=== PATIENT | female | born 1970 | race African-American/Black ===

== ENCOUNTER 2017-02-01 07:49 | Emergency (ER) | payer SELFPAY ==
[2017-02-01 07:54] VITALS: BP 133/89
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
== END 2017-02-01 08:25 | disposition home or self-care (01) ==
LOC: ER 07:49
DX: T20.10XA Burn of first degree of head, face, and neck, unspecified site, initial encounter (principal); X10.2XXA Contact with fats and cooking oils, initial encounter; F17.210 Nicotine dependence, cigarettes, uncomplicated
CPT/HCPCS: 99283

== ENCOUNTER 2018-04-07 10:19 | Emergency (ER) | payer SELFPAY ==
[2018-04-07 10:28] VITALS: BP 123/75
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
--- NOTE | 2018-04-07 11:17 | RADIOLOGY REPORT (SQ) ---
EXAM DESCRIPTION: FOOT RIGHT COMPLETE COMPLETED DATE/TIME: 04/07/2018 10:56 am REASON FOR STUDY: injury03/20/18 continued pain and swelling COMPARISON: None. NUMBER OF VIEWS: Three views. TECHNIQUE: AP, lateral and oblique radiographic images acquired of the right foot. LIMITATIONS: None. FINDINGS: MINERALIZATION: Normal. BONES: No acute fracture or dislocation. No worrisome bone lesions. JOINTS: No effusions. SOFT TISSUES: No soft tissue swelling. No foreign body. OTHER: No other significant finding. IMPRESSION: NEGATIVE STUDY OF THE RIGHT FOOT. NO RADIOGRAPHIC EVIDENCE OF ACUTE INJURY. TECHNICAL DOCUMENTATION: JOB ID: [id number] [employer]- All Rights Reserved Reading location - IP/workstation name: [email or web address]
== END 2018-04-07 11:33 | disposition home or self-care (01) ==
LOC: ER 10:19
DX: S90.31XA Contusion of right foot, initial encounter (principal); F17.210 Nicotine dependence, cigarettes, uncomplicated; W20.8XXA Other cause of strike by thrown, projected or falling object, initial encounter; Y92.009 Unspecified place in unspecified non-institutional (private) residence as the place of occurrence of the external cause; Z88.3 Allergy status to other anti-infective agents; Z86.14 Personal history of Methicillin resistant Staphylococcus aureus infection; Z98.51 Tubal ligation status
CPT/HCPCS: 99283; 99406

== ENCOUNTER 2018-04-30 11:48 | Emergency (ER) | payer SELFPAY ==
[2018-04-30] MEDS ORDERED: KETOROLAC TROMETHAMINE 60 MG/2 ML SDV IM ONE (12:14)
[2018-04-30] MEDS ORDERED: METHOCARBAMOL 750 MG TABLET PO ONE (12:14)
--- NOTE | 2018-04-30 12:54 | RADIOLOGY REPORT (SQ) ---
EXAM DESCRIPTION: SHOULDER RIGHT 2 OR MORE VIEWS COMPLETED DATE/TIME: 04/30/2018 12:39 pm REASON FOR STUDY: fall COMPARISON: None. NUMBER OF VIEWS: Three views. TECHNIQUE: Internal rotation, external rotation, and Y view images acquired of the right shoulder. LIMITATIONS: None. FINDINGS: MINERALIZATION: Normal. BONES: No acute fracture or dislocation. No worrisome bone lesions. JOINTS: No dislocation. VISUALIZED LUNGS AND RIBS: No pneumothorax. No rib fracture. SOFT TISSUES: No radiopaque foreign body. OTHER: No other significant finding. IMPRESSION: NEGATIVE STUDY OF THE RIGHT SHOULDER. NO RADIOGRAPHIC EVIDENCE OF ACUTE INJURY. TECHNICAL DOCUMENTATION: JOB ID: [id number] [employer]- All Rights Reserved Reading location - IP/workstation name: [email or web address]
--- NOTE | 2018-04-30 12:54 | RADIOLOGY REPORT (SQ) ---
EXAM DESCRIPTION: T SPINE AP/LAT COMPLETED DATE/TIME: 04/30/2018 12:39 pm REASON FOR STUDY: fall COMPARISON: None. NUMBER OF VIEWS: Two views. TECHNIQUE: AP and lateral radiographic images acquired of the thoracic spine. LIMITATIONS: None. FINDINGS: MINERALIZATION: Normal. ALIGNMENT: Normal. No scoliosis. VERTEBRAE: No fracture or bone lesion. Maintained height, normal segmentation. DISCS: No significant loss of height or significant narrowing. No large osteophytes. HARDWARE: None in the spine. MEDIASTINUM AND SOFT TISSUES: Normal heart size and aortic contour. No soft tissue abnormality. VISUALIZED LUNG [place]: Clear. OTHER: No other significant finding. IMPRESSION: NO SIGNIFICANT RADIOGRAPHIC FINDING IN THE THORACIC SPINE. TECHNICAL DOCUMENTATION: JOB ID: [id number] [employer]- All Rights Reserved Reading location - IP/workstation name: [email or web address]
--- NOTE | 2018-04-30 13:33 | ER Document Report ---
HPI - HPI Pain Level: 4 Notes: Patient is a 48-year-old female who presents with multiple complaints today. Patient reports that she was stepping down the stairs of the bus yesterday when she slipped and fell sliding down the stairs. Patient reports she has bruising to her back and also pain to her right shoulder. Patient denies hitting her head, denies any loss of consciousness. - REPRODUCTIVE Reproductive: DENIES: : - MUSCULOSKELETAL Musculoskeletal: REPORTS: Extremity pain - Rt shoulder Past Medical History - General Information source: Patient - Social History Smoking Status: Never Smoker Frequency of alcohol use: None Drug Abuse: None Family History: Arthritis, CAD, Hyperlipidemia, Hypertension. denies: CVA, DM, Malignancy, Thyroid Disfunction Patient has suicidal ideation: No Patient has homicidal ideation: No - Past Medical History Cardiac Medical History: Reports: Hx Hypercholesterolemia Pulmonary Medical History: Reports: Hx Asthma, Hx Bronchitis Renal/ Medical History: Denies: Hx Peritoneal Dialysis Musculoskeletal Medical History: Reports Hx Arthritis, Reports Hx Musculoskeletal Trauma - Acute toe fractures Skin Medical History: Reports Hx MRSA Psychiatric Medical History: Reports: Hx Anxiety, Hx Bipolar Disorder, Hx Depression, Hx Post Traumatic Stress Disorder Traumatic Medical History: Reports: Hx Fractures - Fifth toe Infectious Medical History: Reports: Hx MRSA Past Surgical History: Reports: Hx Oral Surgery, Hx Tubal Ligation - Immunizations Immunizations up to date: Yes Hx Diphtheria, Pertussis, Tetanus Vaccination: Yes Vertical Provider Document - CONSTITUTIONAL Notes: PHYSICAL EXAMINATION: GENERAL: Well-appearing, well-nourished and in no acute distress. HEAD: Atraumatic, normocephalic. EYES: Pupils equal round extraocular movements intact, conjunctiva are normal. ENT: Nares patent NECK: Normal range of motion LUNGS: No respiratory distress Musculoskeletal: Normal range of motion NEUROLOGICAL: Normal speech, normal gait. PSYCH: Normal mood, normal affect. SKIN: Warm, Dry, normal turgor, no rashes or lesions noted. - INFECTION CONTROL TRAVEL OUTSIDE OF THE [place] IN LAST 30 DAYS: No Course - Re-evaluation Re-evalutation: X-rays of the right shoulder and thoracic spine are negative for any acute injury. Patient will be instructed to take ibuprofen and Robaxin. - Vital Signs Vital signs: Temp Pulse Resp BP Pulse Ox 99.4 F 96 16 125/70 97 04/30/18 11:53 04/30/18 11:53 04/30/18 11:53 04/30/18 11:53 04/30/18 11:53 Discharge - Discharge Clinical Impression: Contusion Qualifiers: Encounter type: initial encounter Contusion area: shoulder Laterality: right Qualified Code(s): S40.011A - Contusion of right shoulder, initial encounter Back pain Qualifiers: Back pain location: thoracic back pain Chronicity: acute Back pain laterality: bilateral Qualified Code(s): M54.6 - Pain in thoracic spine Condition: Stable Disposition: HOME, SELF-CARE Additional Instructions: Contusion Your injury has resulted in a contusion -- a crushing of the deep tissues. No injury to important structures was detected during the physician's exam. Contusions vary in the amount of pain they cause, and in the length of time required for healing. Typically, the area will become bruised, and will remain painful to touch for two or three weeks. However, most patients are back to working and playing within a few days. After the initial period of rest and cold-packs, your symptoms (together with the doctor's recommendations) will determine how rapidly you can get back to full activity. Usually this means "do what feels okay, but don't do things that hurt." If re-examination was recommended, it's important to follow up as instructed. Call the doctor or return any time if pain increases, if swelling becomes severe, if you develop numbness or weakness in an injured extremity, or if any other alarming symptoms occur. ICE & ELEVATION: Apply ice packs frequently against the painful area. Many different schedules are recommended, such as "20 minutes on, 20 minutes off" or "one hour ice, two hours rest." If you need to work, you may need to go longer between ice treatments. You should plan to have the area ice packed AT LEAST one- fourth of the time. The ice should be applied over the wrap, tape, or splint, or over a layer of cloth -- not directly against the skin. Some ice bags have a built-in cloth and can be put directly on the skin. Your injured part should be elevated as much as possible over the next 48 hours. Try to keep the injury above the level of the heart. Avoid use of the injured area. Elevation and rest will decrease the swelling. FOLLOW-UP CARE: If you have been referred to a physician for follow-up care, call the physician s office for an appointment as you were instructed or within the next two days. If you experience worsening or a significant change in your symptoms, notify the physician immediately or return to the Emergency Department at any time for re-evaluation. Your x-rays were normal today. There are no fractures or dislocations. Take ibuprofen 600 mg every 6 hours, take the muscle relaxer as prescribed. You may alternate using ice and heat as outlined above. Follow-up with your primary care provider in the next 3-5 days for follow-up, sooner if your symptoms worsen. Prescriptions: Methocarbamol [Robaxin 750 mg Tablet] 750 mg PO Q6H #40 tablet Forms: Return to Work
[2018-04-30 13:41] VITALS: BP 107/62
== END 2018-04-30 13:41 | disposition home or self-care (01) ==
LOC: ER 11:48
DX: S40.011A Contusion of right shoulder, initial encounter (principal); M54.6 Pain in thoracic spine; W10.8XXA Fall (on) (from) other stairs and steps, initial encounter; Y92.811 Bus as the place of occurrence of the external cause; J45.909 Unspecified asthma, uncomplicated
CPT/HCPCS: 99283; 96372; 73030; 72070; J1885; J3490

== ENCOUNTER 2018-05-04 13:04 | Emergency (ER) | payer SELFPAY ==
[2018-05-04 13:36] VITALS: BP 127/78
--- NOTE | 2018-05-04 14:09 | ER Document Report ---
ED General - General Chief Complaint: Fall Stated Complaint: BACK NUMBNESS/TINGLING Time Seen by Provider: 05/04/18 13:54 TRAVEL OUTSIDE OF THE [place] IN LAST 30 DAYS: No - Related Data Allergies/Adverse Reactions: acetaminophen [From Percocet] Allergy (Verified 05/04/18 13:09) oxycodone [From Percocet] Allergy (Verified 05/04/18 13:09) sulfamethoxazole [From Bactrim] Adverse Reaction (Verified 05/04/18 13:09) trimethoprim [From Bactrim] Adverse Reaction (Verified 05/04/18 13:09) Past Medical History - Social History Smoking Status: Current Every Day Smoker Frequency of alcohol use: None Drug Abuse: None Family History: Arthritis, CAD, Hyperlipidemia, Hypertension. denies: CVA, DM, Malignancy, Thyroid Disfunction Patient has suicidal ideation: No Patient has homicidal ideation: No - Past Medical History Cardiac Medical History: Reports: Hx Hypercholesterolemia Pulmonary Medical History: Reports: Hx Asthma, Hx Bronchitis Renal/ Medical History: Denies: Hx Peritoneal Dialysis Musculoskeletal Medical History: Reports Hx Arthritis, Reports Hx Musculoskeletal Trauma - Acute toe fractures Skin Medical History: Reports Hx MRSA Psychiatric Medical History: Reports: Hx Anxiety, Hx Bipolar Disorder, Hx Depression, Hx Post Traumatic Stress Disorder Traumatic Medical History: Reports: Hx Fractures - Fifth toe Infectious Medical History: Reports: Hx MRSA Past Surgical History: Reports: Hx Oral Surgery, Hx Tubal Ligation - Immunizations Immunizations up to date: Yes Hx Diphtheria, Pertussis, Tetanus Vaccination: Yes Physical Exam - Vital signs Vitals: Temp Pulse Resp BP Pulse Ox 99.1 F 79 18 127/78 H 96 05/04/18 13:35 05/04/18 13:35 05/04/18 13:35 05/04/18 13:35 05/04/18 13:35 Course - Vital Signs Vital signs: Temp Pulse Resp BP Pulse Ox 99.1 F 79 18 127/78 H 96 05/04/18 13:35 05/04/18 13:35 05/04/18 13:35 05/04/18 13:35 05/04/18 13:35 Discharge - Discharge Clinical Impression: Muscle spasm Sprain, low back Qualifiers: Encounter type: initial encounter Qualified Code(s): S33.5XXA - Sprain of ligaments of lumbar spine, initial encounter Condition: Fair Disposition: HOME, SELF-CARE Instructions: Sprain ([facility]) Prescriptions: Baclofen [Baclofen 10 mg Tablet] 10 mg PO TID #30 tab Diazepam [Valium 2 mg Tablet] 2 mg PO BID PRN #14 tablet PRN Reason: Indomethacin [Indocin 50 Mg Capsule] 50 mg PO BID #30 capsule
== END 2018-05-04 14:06 | disposition home or self-care (01) ==
LOC: ER 13:04
DX: S33.5XXA Sprain of ligaments of lumbar spine, initial encounter (principal); W10.8XXA Fall (on) (from) other stairs and steps, initial encounter; Y92.811 Bus as the place of occurrence of the external cause; M62.838 Other muscle spasm; F17.200 Nicotine dependence, unspecified, uncomplicated; J45.909 Unspecified asthma, uncomplicated; Z88.6 Allergy status to analgesic agent; Z88.5 Allergy status to narcotic agent
CPT/HCPCS: 99283

== ENCOUNTER 2018-12-16 01:18 | Emergency (ER) | payer SELFPAY ==
[2018-12-16 01:33] VITALS: BP 138/93
== END 2018-12-16 03:02 | disposition left against medical advice (07) ==
LOC: ER 01:18
DX: Z53.21 Procedure and treatment not carried out due to patient leaving prior to being seen by health care provider (principal)

== ENCOUNTER 2018-12-16 11:50 | Emergency (ER) | payer SELFPAY ==
[2018-12-16] MEDS ORDERED: LIDOCAINE 2% URO-JET 5 ML KIT MM ONE (13:29)
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
[2018-12-16 13:52] VITALS: BP 121/90
== END 2018-12-16 13:45 | disposition home or self-care (01) ==
LOC: ER 11:50
DX: T23.26 Burn of second degree of back of hand (principal); X10.1XXS Contact with hot food, sequela; R23.8 Other skin changes; M79.641 Pain in right hand; F17.200 Nicotine dependence, unspecified, uncomplicated; E78.00 Pure hypercholesterolemia, unspecified; Z86.14 Personal history of Methicillin resistant Staphylococcus aureus infection; Z88.3 Allergy status to other anti-infective agents; Z88.6 Allergy status to analgesic agent; Z98.51 Tubal ligation status
CPT/HCPCS: 99283; J3490

== ENCOUNTER 2019-03-15 10:48 | Emergency (ER) | payer SELFPAY ==
[2019-03-15] MEDS ORDERED: ONDANSETRON 4 MG TAB.RAPDIS PO ONE (11:54)
--- NOTE | 2019-03-15 11:56 | ER Document Report ---
ED Medical Screen (RME) - General Chief Complaint: Abdominal Pain Stated Complaint: STOMACH PAIN Time Seen by Provider: 03/15/19 11:43 Mode of Arrival: Ambulatory Information source: Patient Notes: This 49-year-old female presents emergency department with upper abdominal pain for the past 3 months with nausea. Denies vomiting but reports she is gagging. Denies diarrhea. Patient still has her gallbladder. Patient is also here with her daughter having same type of abdominal pain. Right upper quad epigastric area tender to touch I have greeted and performed a rapid initial assessment of this patient. A comprehensive ED assessment and evaluation of the patient, analysis of test results and completion of the medical decision making process will be conducted by additional ED providers. Dictation of this chart was performed using voice recognition software; therefore, there may be some unintended grammatical errors. TRAVEL OUTSIDE OF THE [place] IN LAST 30 DAYS: No - Related Data Allergies/Adverse Reactions: acetaminophen [From Percocet] Allergy (Verified 03/15/19 10:49) oxycodone [From Percocet] Allergy (Verified 03/15/19 10:49) sulfamethoxazole [From Bactrim] Adverse Reaction (Verified 03/15/19 10:49) trimethoprim [From Bactrim] Adverse Reaction (Verified 03/15/19 10:49) Past Medical History - Past Medical History Cardiac Medical History: Reports: Hx Hypercholesterolemia Pulmonary Medical History: Reports: Hx Asthma, Hx Bronchitis Renal/ Medical History: Denies: Hx Peritoneal Dialysis Musculoskeltal Medical History: Reports Hx Arthritis, Reports Hx Musculoskeletal Trauma - Acute toe fractures Skin Medical History: Reports Hx MRSA Psychiatric Medical History: Reports: Hx Anxiety, Hx Bipolar Disorder, Hx Depression, Hx Post Traumatic Stress Disorder Traumatic Medical History: Reports: Hx Fractures - Fifth toe Infectious Medical History: Reports: Hx MRSA Past Surgical History: Reports: Hx Oral Surgery, Hx Tubal Ligation - Immunizations Immunizations up to date: Yes Hx Diphtheria, Pertussis, Tetanus Vaccination: Yes Physical Exam - Vital signs Vitals: Temp Pulse Resp BP Pulse Ox 98.5 F 89 18 123/79 95 03/15/19 11:10 03/15/19 11:10 03/15/19 11:10 03/15/19 11:10 03/15/19 11:10 Course - Vital Signs Vital signs: Temp Pulse Resp BP Pulse Ox 98.5 F 89 18 123/79 95 03/15/19 11:10 03/15/19 11:10 03/15/19 11:10 03/15/19 11:10 03/15/19 11:10
[2019-03-15 12:12] LABS: APPEARANCE,URINE SLIGHTLY-CLOUDY; BILIRUBIN,URINE NEGATIVE (NEGATIVE); COLOR,URINE YELLOW; GLUCOSE, URINE NEGATIVE (NEGATIVE); KETONES,URINE NEGATIVE (NEGATIVE); LEUKOCYTE ESTERASE,URINE NEGATIVE (NEGATIVE); NITRITE,URINE NEGATIVE (NEGATIVE); PROTEIN,URINE NEGATIVE (NEGATIVE); URINE SPECIFIC GRAVITY 1.023; UROBILINOGEN,URINE NEGATIVE mg/dL (<2.0)
[2019-03-15 12:45] LABS: ABSOLUTE BASOPHILS # (AUTO) 0.1 10^3/uL (0.0-0.2); ABSOLUTE EOSINOPHILS # (AUTO) 0.1 10^3/uL (0.0-0.6); ABSOLUTE LYMPHOCYTES (AUTO) 1.9 10^3/uL (0.5-4.7); ABSOLUTE MONOCYTES (AUTO) 0.7 10^3/uL (0.1-1.4); ABSOLUTE NEUT (AUTO) 6.4 10^3/uL (1.7-8.2); BASOPHILS % (AUTO) 0.8 % (0-2); EOSINOPHILS % (AUTO) 1.1 % (0-6); HEMATOCRIT 38.3 % (36.0-47.0); HEMOGLOBIN 12.8 g/dL (12.0-15.5); LYMPHOCYTES % (AUTO) 20.8 % (13-45); MEAN CORPUSCULAR HEMOGLOBIN 28.4 pg (27.0-33.4); MEAN CORPUSCULAR HGB CONC 33.5 g/dL (32.0-36.0); MEAN CORPUSCULAR VOLUME 85 fl (80-97); MONOCYTES % (AUTO) 7.6 % (3-13); PLATELET COUNT 276 10^3/uL (150-450); RED BLOOD COUNT 4.52 10^6/uL (3.72-5.28); RED CELL DISTRIBUTION WIDTH 15.1 % (11.5-14.0); SEGMENTED NEUTROPHILS % (AUTO) 69.7 % (42-78); TOTAL CELLS COUNTED % (AUTO) 100 %; WHITE BLOOD COUNT 9.2 10^3/uL (4.0-10.5)
[2019-03-15 12:55] LABS: ALBUMIN 3.9 g/dL (3.5-5.0); ALKALINE PHOSPHATASE 58 U/L (38-126); ANION GAP 7 (5-19); ASPARTATE AMINO TRANSFERASE 16 U/L (14-36); BILIRUBIN,DIRECT 0.1 mg/dL (0.0-0.4); BILIRUBIN,TOTAL 0.2 mg/dL (0.2-1.3); BLOOD UREA NITROGEN 6 mg/dL (7-20); CALCIUM 8.9 mg/dL (8.4-10.2); CARBON DIOXIDE 24 mmol/L (22-30); CHLORIDE 107 mmol/L (98-107); GLUCOSE 93 mg/dL (75-110); POTASSIUM 4.4 mmol/L (3.6-5.0); TOTAL PROTEIN 6.3 g/dL (6.3-8.2)
--- NOTE | 2019-03-15 13:43 | RADIOLOGY REPORT (SQ) ---
EXAM DESCRIPTION: U/S ABDOMEN LIMITED W/O DOP COMPLETED DATE/TIME: 03/15/2019 1:31 pm REASON FOR STUDY: RUQ COMPARISON: None. TECHNIQUE: Dynamic and static grayscale images acquired of the abdomen and recorded on PACS. Additio nal selected color Doppler and spectral images recorded. LIMITATIONS: None. FINDINGS: PANCREAS: The visualized portions of the pancreas appear normal. LIVER: Increased echogenicity of hepatic parenchyma consistent with hepatic steatosis. LIVER VASCULATURE: Normal directional flow of the main portal vein and hepatic veins. GALLBLADDER: The gallbladder is filled with a combination of sludge and calculi. There is no pericho lecystic fluid. ULTRASOUND-DETECTED ATKINSON'S SIGN: Negative. INTRAHEPATIC DUCTS AND COMMON DUCT: The common bile duct measures 2 mm in diameter there is no dilata tion of the intrahepatic bile ducts. INFERIOR VENA CAVA: Normal flow. AORTA: No aneurysm. RIGHT KIDNEY: Normal size. Normal echogenicity. No hydronephrosis. No calcifications. PERITONEAL AND RIGHT PLEURAL SPACE: No ascites or effusions. OTHER: No other findings. IMPRESSION: Cholelithiasis and sludge without other ancillary findings to suggest an acute cholecyst itis. TECHNICAL DOCUMENTATION: JOB ID: [id number] [facility] [employer]- All Rights Reserved Reading location - IP/workstation name: [email or web address]
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
[2019-03-15 14:21] VITALS: BP 125/92
== END 2019-03-15 14:21 | disposition home or self-care (01) ==
LOC: ER 10:48
DX: K80.20 Calculus of gallbladder without cholecystitis without obstruction (principal); R11.0 Nausea; R10.10 Upper abdominal pain, unspecified; R10.11 Right upper quadrant pain; R10.13 Epigastric pain; F17.200 Nicotine dependence, unspecified, uncomplicated
CPT/HCPCS: 99284; 36415; 83690; 85025; 81025; 80053; 81001; 76705; S0119

== ENCOUNTER → 2019-03-31 | Outpatient (CLI) | payer OTHER | LOC: CCC 12:40 | DX: Z13.9 Encounter for screening, unspecified (principal) | CPT/HCPCS: 36415; 83036; 84443 ==

== ENCOUNTER 2019-09-29 09:28 | Observation (INO) | payer SELFPAY ==
[~2019-09-29 09:28] MED LIST: DEXAMETHASONE SOD PHOSPHATE INJ 4 MG/1 ML VIAL ONE; GLYCOPYRROLATE 1 MG/5 ML VIAL ONE; NEOSTIGMINE METHYLSULFATE 10 MG/10 ML VIAL ONE; ONDANSETRON HCL INJ/PF 4 MG/2 ML SDV ONE; ROCURONIUM BROMIDE INJ 50 MG/5 ML VIAL IV ONE; SUCCINYLCHOLINE CHLORIDE INJ 200 MG/10 ML VIAL ONE
[2019-09-29] MEDS ORDERED: ONDANSETRON HCL INJ/PF 4 MG/2 ML SDV IV ONE (09:45)
--- NOTE | 2019-09-29 09:46 | ER Document Report ---
ED Medical Screen (RME) - General Chief Complaint: Abdominal Pain Stated Complaint: ABDOMINAL PAIN Time Seen by Provider: 09/29/19 09:43 Primary Care Provider: SEAN JOSEPH MD [Primary Care Provider] - Follow up as needed Information source: Patient Notes: Patient presents complaining of upper abdominal pain that started yesterday that radiates to the right back area. Patient is concerned about possible problems with her gallbladder. Patient reports nausea vomiting x5 episodes today. No fever. No urinary symptoms. I have greeted and performed a rapid initial assessment of this patient. A comprehensive ED assessment and evaluation of the patient, analysis of test results and completion of the medical decision making process will be conducted by additional ED providers. TRAVEL OUTSIDE OF THE [place] IN LAST 30 DAYS: No - Related Data Allergies/Adverse Reactions: acetaminophen [From Percocet] Allergy (Verified 03/15/19 10:49) oxycodone [From Percocet] Allergy (Verified 03/15/19 10:49) sulfamethoxazole [From Bactrim] Adverse Reaction (Verified 03/15/19 10:49) trimethoprim [From Bactrim] Adverse Reaction (Verified 03/15/19 10:49) Past Medical History - Social History Frequency of alcohol use: None Drug Abuse: None - Past Medical History Cardiac Medical History: Reports: Hx Hypercholesterolemia Pulmonary Medical History: Reports: Hx Asthma, Hx Bronchitis Renal/ Medical History: Denies: Hx Peritoneal Dialysis Musculoskeltal Medical History: Reports Hx Arthritis, Reports Hx Musculoskeletal Trauma - Acute toe fractures Skin Medical History: Reports Hx MRSA Psychiatric Medical History: Reports: Hx Anxiety, Hx Bipolar Disorder, Hx Depres antonino, Hx Post Traumatic Stress Disorder Traumatic Medical History: Reports: Hx Fractures - Fifth toe Infectious Medical History: Reports: Hx MRSA Past Surgical History: Reports: Hx Oral Surgery, Hx Tubal Ligation - Immunizations Immunizations up to date: Yes Hx Diphtheria, Pertussis, Tetanus Vaccination: Yes Physical Exam - Vital signs Vitals: Temp Pulse Resp BP Pulse Ox 98.3 F 77 18 146/98 H 98 09/29/19 09:32 09/29/19 09:32 09/29/19 09:32 09/29/19 09:32 09/29/19 09:32 - Abdominal Tenderness: Tender - Upper abdomen Course - Vital Signs Vital signs: Temp Pulse Resp BP Pulse Ox 98.3 F 77 18 146/98 H 98 09/29/19 09:32 09/29/19 09:32 09/29/19 09:32 09/29/19 09:32 09/29/19 09:32 Doctor's Discharge - Discharge Referrals: SEAN JOSEPH MD [Primary Care Provider] - Follow up as needed
[2019-09-29] MEDS ORDERED: MORPHINE SULFATE 10 MG/ML INJ IV ONE (10:06)
--- NOTE | 2019-09-29 10:08 | ER Document Report ---
ED GI/ - General Chief Complaint: Abdominal Pain Stated Complaint: ABDOMINAL PAIN Time Seen by Provider: 09/29/19 09:43 Primary Care Provider: SEAN JOSEPH MD [NO LOCAL MD] - Follow up as needed Notes: CHIEF COMPLAINT: Upper abdominal pain with vomiting for 24 hours HPI: 49-year-old female with history of cholelithiasis presenting to the emergency department complaining of 24 hours of worsening upper abdominal pain with multiple episodes of vomiting. No fever. No lower abdominal pain. Patient states "I think it is my gallbladder". ROS: See HPI - all other systems were reviewed and are otherwise negative Constitutional: no fever Eyes: no drainage, no blurred vision ENT: no runny nose, no sore throat Cardiovascular: no chest pain Resp: no SOB, no cough GI: + vomiting, no diarrhea, + abdominal pain : no dysuria Integumentary: no rash Allergy: no hives Musculoskeletal: no extremity pain or swelling Neurological: no numbness/tingling, no weakness MEDICATIONS: I agree with the patient medications as charted by the RN. ALLERGIES: I agree with the allergies as charted by the RN. PAST MEDICAL HISTORY/PAST SURGICAL HISTORY: Reviewed and agree as charted by RN. SOCIAL HISTORY: Reviewed and agree as charted by RN. FAMILY HISTORY: No significant familial comorbid conditions directly related to patient complaint EXAM: Reviewed vital signs as charted by RN. CONSTITUTIONAL: Alert and oriented and responds appropriately to questions. Well-appearing; well-nourished, moderate distress secondary to pain and nausea. Actively vomiting during exam HEAD: Normocephalic; atraumatic EYES: PERRL; Conjunctivae clear, sclerae non-icteric ENT: normal nose; no rhinorrhea; moist mucous membranes; pharynx without lesions noted, no uvula edema or deviation, no tonsillar hypertrophy, phonation normal NECK: Supple without meningismus; non-tender; no cervical lymphadenopathy, no masses CARD: RRR; no murmurs, no clicks, no rubs, no gallops; symmetric distal pulses RESP: Normal chest excursion without splinting or tachypnea; breath sounds clear and equal bilaterally; no wheezes, no rhonchi, no rales, pulse oximetry 98% on room air not hypoxic ABD/GI: Normal bowel sounds; non-distended; soft, moderate tenderness over the upper abdomen and right upper quadrant on palpation, no rebound, no guarding; no palpable organomegaly or masses. Actively vomiting BACK: The back appears normal and is non-tender to palpation, there is no CVA tenderness EXT: Normal ROM in all joints; non-tender to palpation; no cyanosis, no effusions, no edema SKIN: Normal color for age and race; warm; dry; good turgor; no acute lesions noted NEURO: Moves all extremities equally; Motor and sensory function intact PSYCH: The patient's mood and manner are appropriate. Grooming and personal hygiene are appropriate. MDM: 49-year-old female presenting with upper abdominal pain with vomiting for 1 day. On review of the records patient was noted to have cholelithiasis with sludge in March 2019 on ultrasound. Initial screening labs through triage process will add ultrasound, pain management TRAVEL OUTSIDE OF THE [place] IN LAST 30 DAYS: No - Related Data Allergies/Adverse Reactions: acetaminophen [From Percocet] Allergy (Verified 03/15/19 10:49) oxycodone [From Percocet] Allergy (Verified 03/15/19 10:49) sulfamethoxazole [From Bactrim] Adverse Reaction (Verified 03/15/19 10:49) trimethoprim [From Bactrim] Adverse Reaction (Verified 03/15/19 10:49) Past Medical History - General Information source: Patient - Social History Smoking Status: Current Every Day Smoker Frequency of alcohol use: None Drug Abuse: None Family History: Arthritis, CAD, Hyperlipidemia, Hypertension. denies: CVA, DM, Malignancy, Thyroid Disfunction Patient has suicidal ideation: No Patient has homicidal ideation: No - Past Medical History Cardiac Medical History: Reports: Hx Hypercholesterolemia Pulmonary Medical History: Reports: Hx Asthma, Hx Bronchitis Renal/ Medical History: Denies: Hx Peritoneal Dialysis Musculoskeletal Medical History: Reports Hx Arthritis, Reports Hx Musculoskeletal Trauma - Acute toe fractures Skin Medical History: Reports Hx MRSA Psychiatric Medical History: Reports: Hx Anxiety, Hx Bipolar Disorder, Hx Depression, Hx Post Traumatic Stress Disorder Traumatic Medical History: Reports: Hx Fractures - Fifth toe Infectious Medical History: Reports: Hx MRSA Past Surgical History: Reports: Hx Oral Surgery, Hx Tubal Ligation - Immunizations Immunizations up to date: Yes Hx Diphtheria, Pertussis, Tetanus Vaccination: Yes Physical Exam - Vital signs Vitals: Temp Pulse Resp BP Pulse Ox 98.3 F 77 18 146/98 H 98 09/29/19 09:32 09/29/19 09:32 09/29/19 09:32 09/29/19 09:32 09/29/19 09:32 Course - Re-evaluation Re-evalutation: 09/29/19 11:46 Ultrasound of the gallbladder shows gallbladder wall thickening, patient is still moderately tender on reexamination, spoke with Dr. Platt, Surgicalist. He will come down and evaluate the patient - Vital Signs Vital signs: Temp Pulse Resp BP Pulse Ox 98.3 F 77 18 146/98 H 98 09/29/19 09:32 09/29/19 09:32 09/29/19 09:32 09/29/19 09:32 09/29/19 09:32 - Laboratory Result Diagrams: 09/29/19 09:54 09/29/19 09:54 Laboratory results interpreted by me: 09/29/19 09/29/19 09:54 09:54 RDW 14.6 H Sodium 136.5 L Anion Gap 4 L Glucose 118 H Total Bilirubin 0.1 L Total Protein 6.0 L Discharge - Discharge Clinical Impression: Symptomatic cholelithiasis Condition: Stable Disposition: ADMITTED INPATIENT Admitting Provider: Surgicalist - Lc Unit Admitted: Surgical Floor Referrals: SEAN JOSEPH MD [NO LOCAL MD] - Follow up as needed
[2019-09-29 10:13] LABS: ABSOLUTE BASOPHILS # (AUTO) 0.1 10^3/uL (0.0-0.2); ABSOLUTE EOSINOPHILS # (AUTO) 0.1 10^3/uL (0.0-0.6); ABSOLUTE LYMPHOCYTES (AUTO) 1.9 10^3/uL (0.5-4.7); ABSOLUTE MONOCYTES (AUTO) 0.8 10^3/uL (0.1-1.4); ABSOLUTE NEUT (AUTO) 7.3 10^3/uL (1.7-8.2); BASOPHILS % (AUTO) 0.5 % (0-2); HEMOGLOBIN 14.7 g/dL (12.0-15.5); LYMPHOCYTES % (AUTO) 18.6 % (13-45); MEAN CORPUSCULAR HEMOGLOBIN 28.1 pg (27.0-33.4); MEAN CORPUSCULAR HGB CONC 33.3 g/dL (32.0-36.0); MEAN CORPUSCULAR VOLUME 84 fl (80-97); MONOCYTES % (AUTO) 7.8 % (3-13); PLATELET COUNT 293 10^3/uL (150-450); RED BLOOD COUNT 5.22 10^6/uL (3.72-5.28); RED CELL DISTRIBUTION WIDTH 14.6 % (11.5-14.0); SEGMENTED NEUTROPHILS % (AUTO) 72.1 % (42-78); TOTAL CELLS COUNTED % (AUTO) 100 %; WHITE BLOOD COUNT 10.1 10^3/uL (4.0-10.5)
[2019-09-29 10:33] LABS: ALBUMIN 3.5 g/dL (3.5-5.0); ALKALINE PHOSPHATASE 67 U/L (38-126); ASPARTATE AMINO TRANSFERASE 18 U/L (14-36); BILIRUBIN,TOTAL 0.1 mg/dL (0.2-1.3); BLOOD UREA NITROGEN 9 mg/dL (7-20); CALCIUM 8.7 mg/dL (8.4-10.2); GLUCOSE 118 mg/dL (75-110); POTASSIUM 4.3 mmol/L (3.6-5.0)
[2019-09-29 10:38] LABS: CARBON DIOXIDE 28 mmol/L (22-30); CHLORIDE 105 mmol/L (98-107)
[2019-09-29 10:42] LABS: ANION GAP 4 (5-19)
--- NOTE | 2019-09-29 11:35 | RADIOLOGY REPORT (SQ) ---
EXAM DESCRIPTION: U/S ABDOMEN LIMITED W/O DOP COMPLETED DATE/TIME: 09/29/2019 11:18 am REASON FOR STUDY: ruq pain COMPARISON: 03/15/2019 TECHNIQUE: Dynamic and static grayscale images acquired of the abdomen and recorded on PACS. Israelo mary selected color Doppler and spectral images recorded. LIMITATIONS: None. FINDINGS: PANCREAS: No masses. Visualized pancreatic duct normal caliber. LIVER: No masses. Echotexture normal. LIVER VASCULATURE: Normal directional flow of the main portal vein and hepatic veins. GALLBLADDER: Numerous gallstones. Gallbladder wall is thickened. There is associated sludge. ULTRASOUND-DETECTED PHILLIPS'S SIGN: Negative. INTRAHEPATIC DUCTS AND COMMON DUCT: CBD and intrahepatic ducts normal caliber. No filling defects. AORTA: No aneurysm. RIGHT KIDNEY: Normal size. Normal echogenicity. No solid or suspicious masses. No hydronephrosis. No calcifications. PERITONEAL AND RIGHT PLEURAL SPACE: No ascites or effusions. OTHER: No other significant findings. IMPRESSION: Cholelithiasis. Gallbladder sludge. Gallbladder wall is thickened. There is no perich olecystic edema. Negative sonographic Phillips's sign. Changes may be secondary to chronic cholecysti tis. TECHNICAL DOCUMENTATION: JOB ID: [id number] 2010 [employer]- All Rights Reserved Reading location - IP/workstation name: [email or web address]
--- NOTE | 2019-09-29 12:52 | PDOC H&P ---
History of Present Illness Patient complains of: Abdominal pain History of Present Illness: VEE GUEVARA is a 49 year old female standing with a year and a half history of intermittent right upper quadrant abdominal pain related with certain types of food intake. Patient suffered an particularly bad episode of this pain just over 24 hours ago along with nausea and vomiting. No fever. Patient thinks that her eyes have been discolored recently including today but her LFTs are normal. Patient denies any alcohol abuse. She does use cocaine. No prior abdominal surgeries other than bilateral tubal ligation. Past Medical History Cardiac Medical History: Reports: Hyperlipidema Pulmonary Medical History: Reports: Asthma, Bronchitis Musculoskeltal Medical History: Reports: Arthritis Psychiatric Medical History: Reports: Bipolar Disorder, Depression, Post Traumatic Stress Disorder Infectious Medical History: Reports: Methicillin-Resistant Staph Aureus Past Surgical History Past Surgical History: Reports: Tubal Ligation Social History Smoking Status: Current Every Day Smoker Frequency of Alcohol Use: Rare Hx Recreational Drug Use: Yes Drugs: Cocaine Hx Prescription Drug Abuse: No Family History Family History: Arthritis, CAD, Hyperlipidemia, Hypertension. denies: CVA, DM, Malignancy, Thyroid Disfunction Parental Family History Reviewed: Yes Children Family History Reviewed: Yes Sibling(s) Family History Reviewed.: Yes Medication/Allergy Home Medications: Methocarbamol [Robaxin 750 mg Tablet] 750 mg PO Q6H #40 tablet 04/30/18 Baclofen [Baclofen 10 mg Tablet] 10 mg PO TID #30 tab 05/04/18 Diazepam [Valium 2 mg Tablet] 2 mg PO BID PRN #14 tablet 05/04/18 Indomethacin [Indocin 50 Mg Capsule] 50 mg PO BID #30 capsule 05/04/18 Cephalexin Monohydrate [Keflex 500 mg Capsule] 500 mg PO BID #20 capsule 12/16/18 Lidocaine 30 gm TP TID PRN #1 cream..g. 12/16/18 Mupirocin [Bactroban 2% Ointment 22 gm] 22 applic TP BID #1 tube 12/16/18 Valacyclovir HCl [Valtrex] 1,000 mg PO TID #21 tablet 12/16/18 Ondansetron [Zofran Odt 4 mg Tablet] 1 - 2 tab PO Q6 PRN #12 tab.rapdis 03/15/19 Allergies/Adverse Reactions: acetaminophen [From Percocet] Allergy (Verified 03/15/19 10:49) oxycodone [From Percocet] Allergy (Verified 03/15/19 10:49) sulfamethoxazole [From Bactrim] Adverse Reaction (Verified 03/15/19 10:49) trimethoprim [From Bactrim] Adverse Reaction (Verified 03/15/19 10:49) Review of Systems All systems: reviewed and no additional remarkable complaints except as stated Constitutional: PRESENT: as per HPI Gastrointestinal: PRESENT: as per HPI Physical Exam Vital Signs: Temp Pulse Resp BP Pulse Ox 98.3 F 77 18 146/98 H 98 09/29/19 09:32 09/29/19 09:32 09/29/19 09:32 09/29/19 09:32 09/29/19 09:32 Intake & Output 09/28/19 09/29/19 09/30/19 06:59 06:59 06:59 Weight 81.647 kg General appearance: PRESENT: no acute distress, cooperative Neck exam: PRESENT: other - Supple with no masses and no tenderness. Respiratory exam: PRESENT: clear to auscultation eric Cardiovascular exam: PRESENT: RRR GI/Abdominal exam: PRESENT: soft - Soft, nondistended, focal tenderness to palpation of the right upper quadrant with a positive Phillips sign. Neurological exam: PRESENT: alert, awake Psychiatric exam: PRESENT: appropriate affect Skin exam: PRESENT: warm Results Laboratory Results: 09/29/19 09:54 09/29/19 09:54 09/29/19 09/29/19 09:54 09:54 WBC 10.1 RBC 5.22 Hgb 14.7 Hct 44.0 MCV 84 MCH 28.1 MCHC 33.3 RDW 14.6 H Plt Count 293 Seg Neutrophils % 72.1 Sodium 136.5 L Potassium 4.3 Chloride 105 Carbon Dioxide 28 Anion Gap 4 L BUN 9 Creatinine 0.85 Est GFR ( Amer) > 60 Glucose 118 H Calcium 8.7 Total Bilirubin 0.1 L AST 18 Alkaline Phosphatase 67 Total Protein 6.0 L Albumin 3.5 Lipase 125.0 Impressions: Abdomen Ultrasound 09/29/19 10:06 IMPRESSION: Cholelithiasis. Gallbladder sludge. Gallbladder wall is thickened. There is no pericholecystic edema. Negative sonographic Phillips's sign. Changes may be secondary to chronic cholecystitis. Assessment & Plan - Diagnosis (1) Acute cholecystitis due to biliary calculus Is this a current diagnosis for this admission?: Yes Plan: Plan laparoscopic cholecystectomy. I have discussed with the patient the risk and benefits of the procedure including risk of conversion to an open procedure, infection, bleeding, bile duct and intestinal injury, mistaken diagnosis, postcholecystectomy diarrhea. Patient understands and agrees to proceed.
[2019-09-29] MEDS ORDERED: NICOTINE 7 MG/24 HR PATCH.TD24 TD ONE (13:10)
[2019-09-29] MEDS ORDERED: RINGERS SOLUTION,LACTATED 1,000 ML IV PRN (13:52)
[2019-09-29 14:47] LABS: APPEARANCE,URINE CLOUDY; BILIRUBIN,URINE NEGATIVE (NEGATIVE); COLOR,URINE AMBER; GLUCOSE, URINE NEGATIVE (NEGATIVE); KETONES,URINE NEGATIVE (NEGATIVE); LEUKOCYTE ESTERASE,URINE TRACE (NEGATIVE); NITRITE,URINE NEGATIVE (NEGATIVE); PROTEIN,URINE 30 mg/dL (NEGATIVE); URINE SPECIFIC GRAVITY 1.024
[2019-09-29] MEDS ORDERED: IPRATROPIUM/ALBUTEROL 0.5-2.5 MG/3 ML AMPUL NEB ONE (15:14)
[2019-09-29] MEDS ORDERED: EPHEDRINE SULFATE INJ 50 MG/1 ML AMPULE ONE (15:21)
[2019-09-29] MEDS ORDERED: FENTANYL CITRATE INJ/PF 250 MCG/5 ML AMPULE ONE (15:21)
[2019-09-29] MEDS ORDERED: MIDAZOLAM 2 MG/2 ML INJ ONE (15:21)
[2019-09-29] MEDS ORDERED: PROPOFOL INJ 200 MG/20 ML VIAL IV ONE (15:22)
[2019-09-29 15:31] LABS: URINE AMPHETAMINES SCREEN NEGATIVE; URINE BARBITURATES SCREEN NEGATIVE; URINE BENZODIAZEPINES SCREEN NEGATIVE; URINE MARIJUANA (THC) SCREEN NEGATIVE; URINE METHADONE SCREEN NEGATIVE; URINE PHENCYCLIDINE SCREEN NEGATIVE
[2019-09-29 15:32] LABS: URINE COCAINE SCREEN UNCONFIRMED POSITIVE
[2019-09-29] MEDS ORDERED: AMPICILLIN SOD/SULBACTAM 1.5 GM VIAL ONE (15:35)
[2019-09-29] MEDS: BUPIVACAINE HCL 0.25 % INJ/PF (2.5 MG/1 ML) 30 ML VIAL ONE ×2 (16:28→17:49)
[2019-09-29] MEDS ORDERED: PROMETHAZINE HCL INJ 25 MG/1 ML VIAL IV PRN ×2 (16:29)
[2019-09-29] MEDS ORDERED: DIPHENHYDRAMINE HCL 50 MG/ML VIAL IV PRN (16:29)
[2019-09-29] MEDS ORDERED: OXYCODONE-ACETAMINOPHEN 5-325 MG TABLET PO PRN ×2 (16:29)
[2019-09-29] MEDS ORDERED: FENTANYL CITRATE INJ/PF 100 MCG/2 ML AMPUL IV PRN ×3 (16:29)
[2019-09-29] MEDS ORDERED: MEPERIDINE HCL/PF INJ 25 MG/1 ML DISP.SYRIN IV PRN (16:29)
[2019-09-29] MEDS ORDERED: MORPHINE SULFATE 10 MG/ML INJ IV PRN (18:10)
[2019-09-29] MEDS ORDERED: NORMAL SALINE 1000 ML 1,000 ML IV PRN (18:10)
[2019-09-29] MEDS ORDERED: KETOROLAC TROMETHAMINE INJ/PF 30 MG/1 ML SDV IV PRN (18:10)
[2019-09-29] MEDS: FENTANYL CITRATE INJ/PF 100 MCG/2 ML AMPUL ONE ×2 (18:10→18:25)
--- NOTE | 2019-09-29 18:10 | Operative Report ---
Operative Report DATE OF SURGERY: 09/29/19 PREOPERATIVE DIAGNOSIS: Acute cholecystitis with cholelithiasis POSTOPERATIVE DIAGNOSIS: Same, superimposed on chronic cholecystitis. Intra- abdominal adhesions OPERATION: Laparoscopic cholecystectomy SURGEON: IBETH SAINZ ANESTHESIA: GA TISSUE REMOVED OR ALTERED: gallbladder COMPLICATIONS: None INTRAOPERATIVE FINDINGS: Multiple hepatic adhesions to the anterior abdominal wall. Markedly thickened wall gallbladder filled with gallstones. PROCEDURE: Informed consent was obtained. Patient was brought to the operating room placed operating table in supine position. After satisfactory induction of general anesthesia, patient's abdomen was prepped and draped in usual sterile fashion. A supraumbilical midline incision was made and dissection carried down to the fascia the peritoneal cavity entered without difficulty. العلي trocar was inserted. Pneumoperitoneum produced good patient toleration. There were multiple anterior abdominal adhesions of the liver and omentum which were taken down first via a 5 mm trocar just above the العلي trocar. Most of the liver adhesions were taken down by the end of the case. 5 mm trocar was placed in the subxiphoid location.Two 5 mm trochars were placed in the right subcostal location. The gallbladder appeared markedly thick-walled and there was inflammatory changes at calot's triangle making the dissection difficult. The gallbladder was grasped and retracted cephalad over the dome of the liver. The infundibulum of the gallbladder was grasped retracted laterally and inferiorly thus exposing calot's triangle. The cystic duct gallbladder junction was clearly identified and the cystic duct was clipped and divided. Cystic artery was likewise taken. There was stone and bile spillage during the case via the cystic duct when the clip on the cystic duct displaced during the removal of the gallbladder. This was the gallbladder portion of the cystic duct and not the remnant left in the body. Clear visualization of the cystic duct stump left in the body demonstrated secure clips. The gallbladder was taken off the gallbladder bed using the hook electrocautery technique. This portion of the procedure was difficult as well due to the inflammatory changes. But the gallbladder was removed intact. The gallbladder was removed with an Endobag through the العلي trocar site fascial defect. Operative field was copiously irrigated and irrigant aspirated out. Hemostasis appeared good. All trochars were removed under the direct vision a laparoscope to ensure hemostasis. The العلي trocar site fascial defect was closed with interrupted Vicryl sutures. All skin incisions were closed with subcuticular interrupted Monocryl sutures. Marcaine was injected at the port sites. Patient tolerated procedure well no apparent complications and was taken to the recovery area in stable condition.
[2019-09-29] MEDS ORDERED: KETOROLAC TROMETHAMINE INJ/PF 30 MG/1 ML SDV ONE (18:15)
[2019-09-30 06:19] LABS: HEMATOCRIT 38.5 % (36.0-47.0); HEMOGLOBIN 12.8 g/dL (12.0-15.5); MEAN CORPUSCULAR HEMOGLOBIN 27.9 pg (27.0-33.4); MEAN CORPUSCULAR HGB CONC 33.3 g/dL (32.0-36.0); MEAN CORPUSCULAR VOLUME 84 fl (80-97); PLATELET COUNT 239 10^3/uL (150-450); RED BLOOD COUNT 4.59 10^6/uL (3.72-5.28); RED CELL DISTRIBUTION WIDTH 14.3 % (11.5-14.0); WHITE BLOOD COUNT 12.3 10^3/uL (4.0-10.5)
[2019-09-30 06:46] LABS: ALBUMIN 2.8 g/dL (3.5-5.0); ALKALINE PHOSPHATASE 50 U/L (38-126); ANION GAP 5 (5-19); ASPARTATE AMINO TRANSFERASE 28 U/L (14-36); BILIRUBIN,TOTAL 0.3 mg/dL (0.2-1.3); BLOOD UREA NITROGEN 7 mg/dL (7-20); CALCIUM 7.9 mg/dL (8.4-10.2); CARBON DIOXIDE 24 mmol/L (22-30); CHLORIDE 106 mmol/L (98-107); GLUCOSE 108 mg/dL (75-110); POTASSIUM 4.8 mmol/L (3.6-5.0); TOTAL PROTEIN 4.7 g/dL (6.3-8.2)
[2019-09-30] MEDS ORDERED: KETOROLAC TROMETHAMINE INJ/PF 30 MG/1 ML SDV IV PRN (08:30)
[2019-09-30 08:37] VITALS: BP 126/90
--- NOTE | 2019-09-30 09:23 | PDOC PROGRESS REPORT ---
Subjective Progress Note for:: 09/30/19 Reason For Visit: ACUTE CHOLECYSTITIS Patient doing well, has not ambulated, tolerated clear liquids. Physical Exam Vital Signs: Temp Pulse Resp BP Pulse Ox 98.9 F 56 L 18 126/90 H 98 09/30/19 08:00 09/30/19 08:00 09/30/19 08:00 09/30/19 08:00 09/30/19 08:00 Intake & Output 09/29/19 09/30/19 10/01/19 06:59 06:59 06:59 Intake Total 4870 Output Total 960 Balance 3910 Weight 82 kg General appearance: PRESENT: no acute distress GI/Abdominal exam: PRESENT: other - Soft, nontender no peritoneal signs no rigidity incisions covered with dressings, dry intact. Results Laboratory Results: 09/30/19 05:55 09/30/19 05:55 09/29/19 09/29/19 09/29/19 09:54 09:54 14:30 WBC 10.1 RBC 5.22 Hgb 14.7 Hct 44.0 MCV 84 MCH 28.1 MCHC 33.3 RDW 14.6 H Plt Count 293 Seg Neutrophils % 72.1 Sodium 136.5 L Potassium 4.3 Chloride 105 Carbon Dioxide 28 Anion Gap 4 L BUN 9 Creatinine 0.85 Est GFR ( Amer) > 60 Glucose 118 H Calcium 8.7 Total Bilirubin 0.1 L AST 18 Alkaline Phosphatase 67 Total Protein 6.0 L Albumin 3.5 Lipase 125.0 Urine Color SAMEER Urine Appearance CLOUDY Urine pH 5.0 Ur Specific Bethany 1.024 Urine Protein 30 H Urine Glucose (UA) NEGATIVE Urine Ketones NEGATIVE Urine Blood SMALL H Urine Nitrite NEGATIVE Ur Leukocyte Esterase TRACE H Urine WBC (Auto) 5 Urine RBC (Auto) 8 09/30/19 09/30/19 05:55 05:55 WBC 12.3 H RBC 4.59 Hgb 12.8 Hct 38.5 MCV 84 MCH 27.9 MCHC 33.3 RDW 14.3 H Plt Count 239 Seg Neutrophils % Sodium 135.0 L Potassium 4.8 Chloride 106 Carbon Dioxide 24 Anion Gap 5 BUN 7 Creatinine 0.75 Est GFR ( Amer) > 60 Glucose 108 Calcium 7.9 L Total Bilirubin 0.3 AST 28 Alkaline Phosphatase 50 Total Protein 4.7 L Albumin 2.8 L Lipase Urine Color Urine Appearance Urine pH Ur Specific Beth[place] Urine Protein Urine Glucose (UA) Urine Ketones Urine Blood Urine Nitrite Ur Leukocyte Esterase Urine WBC (Auto) Urine RBC (Auto) Impressions: Abdomen Ultrasound 09/29/19 10:06 IMPRESSION: Cholelithiasis. Gallbladder sludge. Gallbladder wall is th ickened. There is no pericholecystic edema. Negative sonographic Phillips's sign. Changes may be secondary to chronic cholecystitis. Assessment & Plan - Diagnosis (1) Symptomatic cholelithiasis Is this a current diagnosis for this admission?: Yes Plan: Impression: Doing well 1 day postop laparoscopic cholecystectomy for acute cholecystitis Recommendations: 1. Advance diet 2. increase physical activity; anticipate discharge home later today. Plan discussed with patient and staff. - Time Time Spent: 30 to 50 Minutes
--- NOTE | 2019-10-02 13:24 | EKG REPORT ---
SEVERITY:- BORDERLINE ECG - SINUS RHYTHM SHORT ID INTERVAL, ACCELERATED AV CONDUCTION BORDERLINE LEFT AXIS DEVIATION BORDERLINE T ABNORMALITIES, LATERAL LEADS : Confirmed by: Dao Jauregui 02-Oct-2019 13:23:15
== END 2019-09-30 12:05 | disposition home or self-care (01) ==
LOC: ER 09:28 → EH 14:21 → INTOOBSV 14:21 → 4S 19:01
PROVIDERS: ADMIT Surgery; ATTEND Surgery
DX: K80.10 Calculus of gallbladder with chronic cholecystitis without obstruction (principal); K66.0 Peritoneal adhesions (postprocedural) (postinfection); Z98.51 Tubal ligation status; F17.200 Nicotine dependence, unspecified, uncomplicated
CPT/HCPCS: 99285; 96374; 96375; 36415 ×2; 83690; 85025; 85027; 81025; 80053 ×2; 81001; 80307; 88304 ×2; 76705; 47562; J2250; J3490; J3010 ×2; J1885 ×2; J2270; J0295; J2405; J7030; J7120; J2704; J7620; 93005; 93010; G0378; J0330; J1100; J2710

== ENCOUNTER → 2019-11-15 | Outpatient (CLI) | payer OTHER ==
--- NOTE | 2019-11-15 14:19 | RADIOLOGY REPORT (SQ) ---
EXAM DESCRIPTION: T SPINE AP/LAT IMAGES COMPLETED DATE/TIME: 11/15/2019 12:54 pm REASON FOR STUDY: RADICULOPATHY; CERVICAL AND LUMBAR REGION; HX OF FALL M54.16 RADICULOPATHY, LUMBA R REGION COMPARISON: AP and lateral views of the thoracic spine from 04/30/2018. NUMBER OF VIEWS: Two views. TECHNIQUE: AP and lateral radiographic images acquired of the thoracic spine. LIMITATIONS: None. FINDINGS: MINERALIZATION: Normal. ALIGNMENT: No scoliotic curvature or spondylolisthesis. VERTEBRAE: The thoracic vertebral body heights are preserved. There is no fracture or segmentation a bnormality. DISCS: The intervertebral discs are intact. HARDWARE: Cholecystectomy clips. MEDIASTINUM AND SOFT TISSUES: The cardiomediastinal silhouette is within normal limits. VISUALIZED LUNG [place]: Clear. 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 IMPRESSION: No fracture or malalignment of the thoracic spine. TECHNICAL DOCUMENTATION: JOB ID: [id number] 2010 [employer]- All Rights Reserved Reading location - IP/workstation name: [email or web address]
--- NOTE | 2019-11-15 14:26 | RADIOLOGY REPORT (SQ) ---
EXAM DESCRIPTION: LUMBAR SPINE W/FLEX/EXT IMAGES COMPLETED DATE/TIME: 11/15/2019 12:54 pm REASON FOR STUDY: RADICULOPATHY; CERVICAL AND LUMBAR REGION; HX OF FALL M54.16 RADICULOPATHY, LUMBA R REGION COMPARISON: None. NUMBER OF VIEWS: 7 views. TECHNIQUE: AP, oblique, L5-S1 spot, and lateral (with flexion and extension) views of the lumbar spi ne were obtained. LIMITATIONS: None. FINDINGS: MINERALIZATION: Normal. SEGMENTATION: There are 5 lumbar-type vertebral bodies. There is no transitional anatomy at the lumb osacral junction ALIGNMENT: No spondylolisthesis. FLEXION/EXTENSION: No dynamic subluxation. VERTEBRAE: The lumbar vertebral body heights are preserved. There is no fracture. DISCS: The intervertebral disc spaces are preserved. POSTERIOR ELEMENTS: Degenerative arthropathy of the L5-S1 facet joints. There is no fracture or pars interarticularis defect. HARDWARE: Cholecystectomy clips. OTHER: No other finding. IMPRESSION: 1. No acute fracture or malalignment of the lumbar spine. 2. No spondylolisthesis or dynamic subluxation with flexion and extension. 3. Degenerative arthropathy of the L5-S1 facet joints. TECHNICAL DOCUMENTATION: JOB ID: [id number] 2010 [employer]- All Rights Reserved Reading location - IP/workstation name: [email or web address]
--- NOTE | 2019-11-15 14:27 | RADIOLOGY REPORT (SQ) ---
EXAM DESCRIPTION: C SP 6 OR MORE VIEWS IMAGES COMPLETED DATE/TIME: 11/15/2019 12:54 pm REASON FOR STUDY: RADICULOPATHY; CERVICAL AND LUMBAR REGION; HX OF FALL M54.16 RADICULOPATHY, LUMBA R REGION COMPARISON: None. NUMBER OF VIEWS: Seven views. TECHNIQUE: AP, lateral, obliques, flexion, extension, and odontoid radiographic images acquired of t he cervical spine. LIMITATIONS: None. FINDINGS: MINERALIZATION: Normal. ALIGNMENT: There is reversal of the normal lordotic curvature of the cervical spine. There is no perfecto antoaxial dissociation on the odontoid view. FLEXION/EXTENSION: No dynamic subluxation. VERTEBRAE: The cervical vertebral body heights are preserved. There is no fracture. DISCS: Anterior osteophytes at C5-C6. The intervertebral disc spaces are preserved. FORAMINA: No stenosis. LATERAL AND POSTERIOR ELEMENTS: Intact. HARDWARE: None in the spine. SOFT TISSUES: No radiographic abnormality. OTHER: No other finding. IMPRESSION: 1. Anterior osteophytes at C5-C6. The intervertebral disc spaces are preserved. 2. No osteophytic foraminal stenosis or dynamic subluxation. TECHNICAL DOCUMENTATION: JOB ID: [id number] 2010 [employer]- All Rights Reserved Reading location - IP/workstation name: [email or web address]
== END ==
LOC: CCC 11:51
PROVIDERS: ATTEND Physician Assistant Surgical
DX: M47.27 Other spondylosis with radiculopathy, lumbosacral region (principal); M54.12 Radiculopathy, cervical region
CPT/HCPCS: 72052; 72070; 72114